=== PATIENT | female | born 1955 | race Caucasian/White ===

== ENCOUNTER 2019-04-10 14:43 | Outpatient (CLI) | payer OTHER ==
--- NOTE | 2019-04-10 16:50 | MRI ---
EXAM: RIGHT KNEE MRI WITH IV CONTRAST: 04/10/19 HISTORY: Right knee pain and swelling. FINDINGS: Multiplanar, multisequence MRI examination of the right knee is performed. Image degradation from mot ion artifact is noted on numerous sequences. Suprapatellar recess fluid distention, evidence for joint effusion. Irregular full thickness root tea r of the posterior root of the medial meniscus. Focal subchondral abnormal marrow signal of the media l aspect of the medial tibial plateau concerning for an insufficiency type subchondral fracture. Smal l subsurface free edge tear of the posterior horn of the lateral meniscus. 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 Somew hat complicated synovial cyst at the level of the medial gastrocnemius femoral insertion. There is ge neralized cartilage loss. Minimal lateral patellar subluxation. IMPRESSION: Irregular posterior root tear medial meniscus. Small focus with the appearance of an insufficiency ty pe subchondral fracture of the medial aspect of the medial tibial plateau. Small irregular subsurfac e tear of the posterior horn of the lateral meniscus. Lateral patellar subluxation. Tricompartment ir regular cartilage loss. Evidence for joint effusion. POS: OFF
== END 2019-04-10 14:44 | disposition home or self-care (01) ==
LOC: BICMRI 14:43
PROVIDERS: ATTEND Family Medicine
DX: M25.561 Pain in right knee (principal); S83.241A Other tear of medial meniscus, current injury, right knee, initial encounter; S83.281A Other tear of lateral meniscus, current injury, right knee, initial encounter; S83.011A Lateral subluxation of right patella, initial encounter; M25.461 Effusion, right knee